=== PATIENT | male | born 1950 | race Caucasian/White ===

== ENCOUNTER 2018-12-03 11:25 | Inpatient (IN) | payer SELFPAY ==
[~2018-12-03] VITALS: Ht 180.3 cm; Wt 89.1 kg
[2018-12-03 11:54] VITALS: Ht 180.3 cm; Wt 89.1 kg
[2018-12-03 12:40] LABS: BASOPHIL % 1.5 % (0-2); PLATELET COUNT 209 x10^3mcL (130-400); RED CELL DISTRIBUTION WIDTH 14.4 % (11.5-14.5)
[2018-12-03 12:50] LABS: CALCIUM 9.3 mg/dL (8.5-10.1); CARBON DIOXIDE 30.6 mmol/L (21-32); CHLORIDE SERUM 104 mmol/L (98-107); CREATININE SERUM 0.9 mg/dL (0.7-1.3); GFR1 > 60 mL/min; GLUCOSE SERUM 123 mg/dL (74-106); POTASSIUM SERUM 4.8 mmol/L (3.5-5.1); SODIUM SERUM 140 mmol/L (136-145)
[2018-12-03 12:57] LABS: ALBUMIN 3.4 g/dL (3.4-5.0); ALKALINE PHOSPHATASE 66 U/L (46-116); ALT/SGPT 38 U/L (16-63); AST/SGOT 26 U/L (15-37); BILIRUBIN TOTAL 0.81 mg/dL (0.20-1.00); TOTAL PROTEIN, SERUM 7.2 g/dL (6.4-8.2)
[2018-12-03 13:00] LABS: CHOLESTEROL 231 mg/dL (<200); HDL CHOLESTEROL 63 mg/dL (40-60)
[2018-12-03] MEDS ORDERED: GLIPIZIDE5 M3 PO (13:43)
[2018-12-03] MEDS ORDERED: METFORMIN HCL1000 MG PO (13:43)
[2018-12-03 14:55] LABS: MAGNESIUM 2.2 mg/dL (1.8-2.4)
[2018-12-03 14:58] LABS: T3 TOTAL 1.09 ng/mL
[2018-12-03 14:59] LABS: CHOLESTEROL/HDL RATIO 3.7
[2018-12-03 15:39] LABS: microscopic required? YES; urine erythrocyte 1+ (NEGATIVE)
[2018-12-03 15:46] LABS: FREE T4 1.08 ng/dL (0.76-1.46); FREE THYROXINE INDEX 3.4 ug/dL (1.4-4.5)
[2018-12-03 17:37] VITALS: BP 194/82
[2018-12-03 17:42] LABS: AMPHETAMINE QUAL UR NONE DETECTED (See below)
[2018-12-03 19:00] VITALS: BP 155/69
[2018-12-03 21:00] VITALS: BP 158/70
[2018-12-03 22:51] VITALS: BP 145/52
[2018-12-04] VITALS (8 sets, daily range): BP systolic 158–212; BP diastolic 64–89
[2018-12-04 06:22] LABS: BASOPHIL % 0.4 % (0-2); PLATELET COUNT 206 x10^3mcL (130-400); RED CELL DISTRIBUTION WIDTH 14.3 % (11.5-14.5)
[2018-12-04 06:33] LABS: CALCIUM 8.8 mg/dL (8.5-10.1); CARBON DIOXIDE 24.6 mmol/L (21-32); CHLORIDE SERUM 106 mmol/L (98-107); CREATININE SERUM 0.9 mg/dL (0.7-1.3); GFR1 > 60 mL/min; GLUCOSE SERUM 126 mg/dL (74-106); POTASSIUM SERUM 4.1 mmol/L (3.5-5.1); SODIUM SERUM 140 mmol/L (136-145)
[2018-12-05 05:38] VITALS: BP 163/73
[2018-12-05 06:21] LABS: CALCIUM 9.1 mg/dL (8.5-10.1); CARBON DIOXIDE 26.2 mmol/L (21-32); CHLORIDE SERUM 109 mmol/L (98-107); GFR1 > 60 mL/min; GLUCOSE SERUM 162 mg/dL (74-106); POTASSIUM SERUM 4.8 mmol/L (3.5-5.1); SODIUM SERUM 142 mmol/L (136-145)
[2018-12-05 06:43] LABS: BASOPHIL % 0.3 % (0-2); PLATELET COUNT 219 x10^3mcL (130-400); RED CELL DISTRIBUTION WIDTH 14.6 % (11.5-14.5)
[2018-12-05 09:30] VITALS: BP 182/86
[2018-12-05] MEDS ORDERED: NOR10 PO (12:51)
[2018-12-05] MEDS ORDERED: PRINIVIL20 MG PO (12:52)
[2018-12-05] MEDS ORDERED: HYDRALAZINE HY100 MG PO (12:54)
[2018-12-05] MEDS ORDERED: ULTRAM50 MG PO (12:54)
[2018-12-05] MEDS ORDERED: ATENOLOL50 MG PO (13:27)
[2018-12-05 13:29] VITALS: BP 182/86
[2018-12-05 17:27] VITALS: BP 180/85
[2018-12-05 20:38] VITALS: BP 160/82
[2018-12-06 05:23] VITALS: BP 126/72
[2018-12-06 06:22] LABS: CALCIUM 8.7 mg/dL (8.5-10.1); CARBON DIOXIDE 25.6 mmol/L (21-32); CHLORIDE SERUM 108 mmol/L (98-107); CREATININE SERUM 1.1 mg/dL (0.7-1.3); GFR1 > 60 mL/min; GLUCOSE SERUM 153 mg/dL (74-106); POTASSIUM SERUM 4.5 mmol/L (3.5-5.1); SODIUM SERUM 141 mmol/L (136-145)
[2018-12-06 06:25] LABS: BASOPHIL % 0.5 % (0-2); PLATELET COUNT 206 x10^3mcL (130-400); RED CELL DISTRIBUTION WIDTH 14.2 % (11.5-14.5)
[2018-12-06 09:01] VITALS: BP 146/69
[2018-12-06] MEDS ORDERED: ISOSORBIDE MONO30 MG PO (09:44)
[2018-12-06 10:35] VITALS: BP 181/78
[2018-12-06 11:50] VITALS: BP 177/85
[2018-12-06 13:18] VITALS: BP 148/78
[2018-12-06 13:36] VITALS: BP 148/78
== END 2018-12-06 13:54 | disposition home or self-care (01) | DRG 280 ==
LOC: ED 11:25 → DU 13:36
PROVIDERS: Emergency Medicine; Internal Medicine; ADMIT General Practice
DX: I21.A1 Myocardial infarction type 2 (principal); N17.0 Acute kidney failure with tubular necrosis; E44.1 Mild protein-calorie malnutrition; I16.0 Hypertensive urgency; E11.65 Type 2 diabetes mellitus with hyperglycemia; E78.5 Hyperlipidemia, unspecified; I10 Essential (primary) hypertension; Z90.49 Acquired absence of other specified parts of digestive tract; Z68.27 Body mass index [BMI] 27.0-27.9, adult
CPT/HCPCS: 82962; 83880; 84439; 90658; J0360; J7030; Q0092

== ENCOUNTER 2019-05-23 19:47 | Inpatient (IN) | payer MEDICAID ==
[~2019-05-23] VITALS: Ht 180.3 cm; Wt 92.0 kg
[~2019-05-23 19:47] MED LIST: ATENOLOL50 MG PO; GLIPIZIDE5 M3 PO; HYDRALAZINE HY100 MG PO; ISOSORBIDE MONO30 MG PO; METFORMIN HCL1000 MG PO; NOR10 PO; PRINIVIL20 MG PO; ULTRAM50 MG PO
[2019-05-23 20:10] VITALS: Ht 180.3 cm; Wt 92.0 kg
[2019-05-23 21:28] LABS: BASOPHIL % 0.2 % (0-2); PLATELET COUNT 239 x10^3mcL (130-400); RED CELL DISTRIBUTION WIDTH 13.6 % (11.5-14.5)
[2019-05-23 21:35] LABS: CALCIUM 8.2 mg/dL (8.5-10.1); CARBON DIOXIDE 25.2 mmol/L (21-32); CREATININE SERUM 1.4 mg/dL (0.7-1.3)
[2019-05-23 21:40] LABS: BILIRUBIN TOTAL 0.5 mg/dL (0.20-1.00); TOTAL PROTEIN, SERUM 6.9 g/dL (6.4-8.2)
[2019-05-23 21:41] LABS: ALBUMIN 3.3 g/dL (3.4-5.0)
[2019-05-23] MEDS ORDERED: SIMVASTATIN20 M1 PO (23:43)
[2019-05-24 00:10] LABS: CHOLESTEROL/HDL RATIO 3.3; MAGNESIUM 1.9 mg/dL (1.8-2.4); PHOSPHOROUS 3.4 mg/dL (2.5-4.9)
[2019-05-24 01:06] VITALS: BP 150/69
[2019-05-24 06:44] VITALS: BP 119/62
[2019-05-24 07:13] LABS: BASOPHIL % 0.1 % (0-2); PLATELET COUNT 205 x10^3mcL (130-400); RED CELL DISTRIBUTION WIDTH 13.6 % (11.5-14.5)
[2019-05-24 07:15] LABS: CALCIUM 7.9 mg/dL (8.5-10.1); CARBON DIOXIDE 26.5 mmol/L (21-32); CREATININE SERUM 1.4 mg/dL (0.7-1.3); PHOSPHOROUS 3.5 mg/dL (2.5-4.9); POTASSIUM SERUM 4.3 mmol/L (3.5-5.1)
[2019-05-24 08:20] VITALS: BP 120/60
[2019-05-24 16:31] VITALS: BP 128/64
[2019-05-24 20:07] VITALS: BP 143/66
[2019-05-24 22:14] LABS: UA SPECIFIC GRAVITY 1.015 (1.005-1.035); microscopic required? YES; urine erythrocyte NEGATIVE (NEGATIVE)
[2019-05-24 22:41] LABS: AMPHETAMINE QUAL UR NONE DETECTED (See below)
[2019-05-25 05:58] VITALS: BP 141/58
[2019-05-25 06:32] LABS: BASOPHIL % 0.2 % (0-2); PLATELET COUNT 236 x10^3mcL (130-400); RED CELL DISTRIBUTION WIDTH 13.8 % (11.5-14.5)
[2019-05-25 06:48] LABS: CALCIUM 7.8 mg/dL (8.5-10.1); CARBON DIOXIDE 23.1 mmol/L (21-32); CHLORIDE SERUM 100 mmol/L (98-107); CREATININE SERUM 1.2 mg/dL (0.7-1.3); GFR1 > 60 mL/min; GLUCOSE SERUM 174 mg/dL (74-106); MAGNESIUM 1.9 mg/dL (1.8-2.4); POTASSIUM SERUM 4.2 mmol/L (3.5-5.1); SODIUM SERUM 136 mmol/L (136-145)
[2019-05-25 08:33] VITALS: BP 134/62
[2019-05-25 16:51] VITALS: BP 134/62
[2019-05-25 19:52] VITALS: BP 148/69
[2019-05-26 05:53] VITALS: BP 170/76
[2019-05-26 06:47] LABS: BASOPHIL % 0.3 % (0-2); PLATELET COUNT 255 x10^3mcL (130-400); RED CELL DISTRIBUTION WIDTH 13.6 % (11.5-14.5)
[2019-05-26 06:56] VITALS: BP 145/68
[2019-05-26 07:02] LABS: CALCIUM 7.9 mg/dL (8.5-10.1); CARBON DIOXIDE 23.3 mmol/L (21-32); CHLORIDE SERUM 103 mmol/L (98-107); CREATININE SERUM 1.2 mg/dL (0.7-1.3); GFR1 > 60 mL/min; GLUCOSE SERUM 149 mg/dL (74-106); POTASSIUM SERUM 4.4 mmol/L (3.5-5.1); SODIUM SERUM 137 mmol/L (136-145)
[2019-05-26 08:13] VITALS: BP 141/63
[2019-05-26 11:53] VITALS: BP 110/65
[2019-05-26 20:07] VITALS: BP 126/64
[2019-05-27 06:49] VITALS: BP 128/67
[2019-05-27 07:00] LABS: PLATELET COUNT 288 x10^3mcL (130-400); RED CELL DISTRIBUTION WIDTH 13.6 % (11.5-14.5)
[2019-05-27 07:09] LABS: BASOPHIL % 0 % (0-2)
[2019-05-27 08:31] VITALS: BP 142/69
[2019-05-27 08:37] LABS: CALCIUM 7.9 mg/dL (8.5-10.1); CHLORIDE SERUM 102 mmol/L (98-107); CREATININE SERUM 1.2 mg/dL (0.7-1.3); GFR1 > 60 mL/min; GLUCOSE SERUM 200 mg/dL (74-106); POTASSIUM SERUM 4.4 mmol/L (3.5-5.1); SODIUM SERUM 136 mmol/L (136-145)
[2019-05-27 12:59] VITALS: BP 126/77; BP 161/77
[2019-05-27 16:55] VITALS: BP 152/70
[2019-05-27 20:53] VITALS: BP 151/67
[2019-05-28 05:12] VITALS: BP 159/77
[2019-05-28 06:41] LABS: BASOPHIL % 0.4 % (0-2); PLATELET COUNT 358 x10^3mcL (130-400); RED CELL DISTRIBUTION WIDTH 13.3 % (11.5-14.5)
[2019-05-28 07:00] LABS: CHLORIDE SERUM 103 mmol/L (98-107); CREATININE SERUM 1.2 mg/dL (0.7-1.3); GFR1 > 60 mL/min; GLUCOSE SERUM 159 mg/dL (74-106); PHOSPHOROUS 2.9 mg/dL (2.5-4.9); POTASSIUM SERUM 4.4 mmol/L (3.5-5.1); SODIUM SERUM 136 mmol/L (136-145)
[2019-05-28 09:32] VITALS: BP 165/81
[2019-05-28 12:35] VITALS: BP 116/61
[2019-05-28 17:38] VITALS: BP 156/83
[2019-05-28 21:08] VITALS: BP 141/60
[2019-05-29 05:42] VITALS: BP 138/70
[2019-05-29 07:29] LABS: BASOPHIL % 0.1 % (0-2); RED CELL DISTRIBUTION WIDTH 13.8 % (11.5-14.5)
[2019-05-29 07:52] LABS: CALCIUM 7.9 mg/dL (8.5-10.1); CARBON DIOXIDE 23.9 mmol/L (21-32); CHLORIDE SERUM 104 mmol/L (98-107); CREATININE SERUM 1.1 mg/dL (0.7-1.3); GFR1 > 60 mL/min; GLUCOSE SERUM 171 mg/dL (74-106); POTASSIUM SERUM 4.6 mmol/L (3.5-5.1); SODIUM SERUM 137 mmol/L (136-145)
[2019-05-29 08:00] VITALS: BP 165/78
[2019-05-29 08:17] LABS: PLATELET COUNT 412 x10^3mcL (130-400)
[2019-05-29 11:41] VITALS: BP 145/76
[2019-05-29 16:24] VITALS: BP 148/73
[2019-05-29 19:14] VITALS: BP 128/60
[2019-05-30 05:26] VITALS: BP 164/76
[2019-05-30 06:46] LABS: BASOPHIL % 0.6 % (0-2); RED CELL DISTRIBUTION WIDTH 13.9 % (11.5-14.5)
[2019-05-30 06:57] LABS: CALCIUM 8.1 mg/dL (8.5-10.1); CARBON DIOXIDE 25.7 mmol/L (21-32); CHLORIDE SERUM 104 mmol/L (98-107); CREATININE SERUM 1.1 mg/dL (0.7-1.3); GFR1 > 60 mL/min; GLUCOSE SERUM 169 mg/dL (74-106); POTASSIUM SERUM 4.7 mmol/L (3.5-5.1); SODIUM SERUM 139 mmol/L (136-145)
[2019-05-30 07:04] LABS: PLATELET COUNT 446 x10^3mcL (130-400)
[2019-05-30 08:43] VITALS: BP 160/76
[2019-05-30] MEDS ORDERED: APAP/HYDROCODON1 T13 PO (11:23)
[2019-05-30] MEDS ORDERED: CLINDAMYCIN HC300 MG PO (11:25)
[2019-05-30 13:43] VITALS: BP 136/62
== END 2019-05-30 16:06 | disposition home health service (06) | DRG 710 ==
LOC: ED 19:47 → MU 22:54 → DU 05-27 22:50 → MU 05-28 15:50
PROVIDERS: Emergency Medicine; Internal Medicine; Podiatrist Foot & Ankle Surgery; ADMIT General Practice
PROC: 0Y9N0ZZ Drainage of Left Foot, Open Approach (ICD-10-PCS; 2019-05-26)
PROC: 0Y6N0ZF Detachment at Left Foot, Partial 5th Ray, Open Approach (ICD-10-PCS; principal; 2019-05-26 16:00)
PROC: 0Y6N0ZD Detachment at Left Foot, Partial 4th Ray, Open Approach (ICD-10-PCS; 2019-05-28)
DX: A41.9 Sepsis, unspecified organism (principal); N17.0 Acute kidney failure with tubular necrosis; E11.42 Type 2 diabetes mellitus with diabetic polyneuropathy; E11.51 Type 2 diabetes mellitus with diabetic peripheral angiopathy without gangrene; D68.69 Other thrombophilia; E11.65 Type 2 diabetes mellitus with hyperglycemia; E44.1 Mild protein-calorie malnutrition; E87.1 Hypo-osmolality and hyponatremia; L03.116 Cellulitis of left lower limb; L02.612 Cutaneous abscess of left foot; B95.1 Streptococcus, group B, as the cause of diseases classified elsewhere; E86.0 Dehydration; E83.51 Hypocalcemia; B35.3 Tinea pedis; L85.9 Epidermal thickening, unspecified; E78.5 Hyperlipidemia, unspecified; I10 Essential (primary) hypertension; D64.9 Anemia, unspecified; Z68.26 Body mass index [BMI] 26.0-26.9, adult; Z79.84 Long term (current) use of oral hypoglycemic drugs
CPT/HCPCS: 82962; 97110-GP; 97530-GP; G0378; J2001; J2270; J2405; J2543; J2704; J3010; J3370; J3490; J7030; J7050; Q0092

== ENCOUNTER 2019-06-04 22:55 | Inpatient (IN) | payer MEDICAID ==
[~2019-06-04] VITALS: Ht 180.3 cm; Wt 88.0 kg
[~2019-06-04 22:55] MED LIST changes: +APAP/HYDROCODON1 T13 PO; +CLINDAMYCIN HC300 MG PO; +SIMVASTATIN20 M1 PO
[2019-06-04 23:04] VITALS: Ht 180.3 cm; Wt 88.0 kg
--- NOTE | 2019-06-05 01:09 | NUR ---
PT AAOX4, NO S/S OF DISTRESS NOTED, RESPIRATIONS EVEN AND UNLABORED. PT C/O OF L FOOT PAIN RATED 10/10. PT REPORTS HAVING L 4TH DIGIT AMPULATION ON MONDAY AND 5TH DIGIT AMPUTATION ON MONDAY. PT PRESENTS TO ED WITH DRESSING TO L FOOT AND WOULD VAC. DRESSING IS DRY AND INTACT. PT REPORTS ATTEMPT TO BE SEEN BY PRIMARY DR BUT WAS UNABLE TO BEEN SEEN UNTIL MONDAY. PT REPORTS BEING SEEN ON MONDAY BY WOUND NURSE IN HOME. PER PT , NURSE STATED THAT WOUND WAS NOT HEALING PROPERLY AND PT SHOULD BE SEEN BY PRIMARY OR COME TO ED.
--- NOTE | 2019-06-05 02:10 | NUR ---
PT LAYING IN BED, PT REPORTS PAIN IS A 10/10. PT GIVEN TORADOL IM PER ORDER. PT ASSISTED TO POSITION TO COMFORT AND L FOOT ELEVATED. PT AT BEDSIDE.
[2019-06-05 02:53] LABS: BASOPHIL % 0.6 % (0-2); RED CELL DISTRIBUTION WIDTH 13.1 % (11.5-14.5)
[2019-06-05 02:54] LABS: PLATELET COUNT 482 x10^3mcL (130-400)
[2019-06-05 02:56] LABS: CALCIUM 8.8 mg/dL (8.5-10.1); CARBON DIOXIDE 25.7 mmol/L (21-32); CHLORIDE SERUM 102 mmol/L (98-107); CREATININE SERUM 1.2 mg/dL (0.7-1.3); GFR1 > 60 mL/min; GLUCOSE SERUM 153 mg/dL (74-106); POTASSIUM SERUM 4.4 mmol/L (3.5-5.1); SODIUM SERUM 137 mmol/L (136-145)
[2019-06-05 03:01] LABS: ALBUMIN 2.9 g/dL (3.4-5.0); ALKALINE PHOSPHATASE 123 U/L (46-116); ALT/SGPT 35 U/L (16-63); AST/SGOT 17 U/L (15-37); BILIRUBIN TOTAL 0.22 mg/dL (0.20-1.00); TOTAL PROTEIN, SERUM 7.1 g/dL (6.4-8.2)
--- NOTE | 2019-06-05 03:05 | NUR ---
PT SLEEPING IN BED, AROUSABLE TO VERBAL STIMULI. PT REPORTS PAIN HAS DECREASED TO 7/10. EMT SUBHASH REMOVING DRESSING. PT REPORTS PAIN INCREASES WITH TOUCH TO A 10/10. PT DESCRIBES THE PAIN STATING "IT FEELS LIKE ITS ON FIRE LIKE A BURN THE NERVES HURT."
--- NOTE | 2019-06-05 03:51 | NUR ---
PT SITTING UP IN BED NO S/S OF DISTRESS NOTED. PT REPORTS PAIN HAS DECREASED TO A 2/10 AND IS TOLERABLE. PT TALKING TO AT BEDSIDE.
[2019-06-05] MEDS ORDERED: HYDRALAZINE HCL50 MG PO (04:05)
--- NOTE | 2019-06-05 04:58 | NUR ---
PT LAYING IN BED TO POSITION OF COMFORT, TALKING TO AT BEDSIDE. NO S/S OF DISTRESS NOTED.
--- NOTE | 2019-06-05 06:50 | NUR ---
PT LAYING IN BED TO POSITION OF COMFORT. PT REPORTS PAIN IS A 4/10 AND IS TOLERABLE. PT REQUESTED FOR LIGHTS TO BE TURNED OFF. PT MADE AWARE OF ED HOLD UPON AVAILABILITY OF MED/SURG BED. PT IN NO ACUTE DISTRESS.
[2019-06-05 06:54] LABS: CHOLESTEROL/HDL RATIO 4.3
--- NOTE | 2019-06-05 07:21 | NUR ---
ATTEMPTED TO CALL REPORT TWICE, NO ANSWER. CALLED NURSING STATION, WAS TOLD NURSE WOULD CALL BACK FOR REPORT.
--- NOTE | 2019-06-05 07:47 | NUR ---
REPORT CALLED TO ARAM TORRES ON TELE UNIT TO ASSUME CARE OF PT.
--- NOTE | 2019-06-05 08:00 | NUR ---
RECEIVED PATIENT FROM ER AT THIS TIME VIA [facility] AT THIS TIME. PATIENT ABLE TO TRANSDER FROM [place] TO BED. NO APPARENT DISTRESS OR DISCOMFORT NOTED. PATIENT A/O X4 AND ABLE TO MAKE NEEDS KNOWN. ABLE TO FOLLOW COMMANDS. BREATHING EVEN AND UNLABORED. PATIENT DENIES SHORTNESS OF BREATH AT THIS TIME. PATIENT DENIES CHEST PAIN/PRESSURE AT THIS TIME. PATIENT IS A MEDSURG PATIENT. UPPER EXTREMITY PULSES PALPABLE. WEAK PEDAL PULSES NOTED. +1 EDEMA NOTED TO BLE (FEET). PATIENT S/P 4TH/5TH LEFT TOE AMPUTATION. WOUND VAC IN PLACE TO LEFT FOOT. LEFT EXTREMITY ELEVATED. BOWEL SOUNDS ACTIVE X4. PATIENT DENIES ABD PAIN, NAUSEA, AND VOMITING. PATIENT C/O MILD DISCOMFORT WHILE URINATING. GENERALIZED WEAKNESS. PATIENT STATES PAIN 3/10, BUT TOLERABLE. IV PATENT AND INTACT. ALL QUESTIONS AND CONCERNS ADDRESSED. ALL NEEDS ATTENDED TO. WILL CONTINUE TO MONITOR
[2019-06-05 09:15] VITALS: BP 157/64
--- NOTE | 2019-06-05 10:00 | NUR ---
PATIENT RECEIVED MORNING MEDICATIONS. PATIENT TOLERATED MEDICATIONS WELL. NO APPARENT ADVERSE EFFECTS NOTED. ALL NEEDS ATTENDED TO. WILL CONTINUE TO MONITOR
[2019-06-05 11:17] LABS: microscopic required? YES; urine erythrocyte NEGATIVE (NEGATIVE)
--- NOTE | 2019-06-05 12:00 | NUR ---
PATIENT BLOOD SUGAR 174. 3 UNITS OF REGULAR INSULIN REQUIRED (SEE EMAR). ALL NEEDS ATTENDED TO. WILL CONTINUE TO MONITOR
[2019-06-05 16:13] VITALS: BP 134/68
--- NOTE | 2019-06-05 19:37 | NUR ---
PATIENT RESTING COMFORTABLY IN BED AT THIS TIME. NO APPARENT DISTRESS OR DISCOMFORT NOTED. WOUND VAC NOTED TO LEFT FOOT. LEFT LOWER EXTREMITY ELEVATED ON PILLOW. IV PATENT AND INTACT. ALL QUESTIONS AND CONCERNS ADDRESSED. ALL NEEDS ATTENDED TO. SAFETY PRECAUTIONS MAINTAINED. ENDORSED ALL CARE TO MOLD SHEET CLEANER NURSE
--- NOTE | 2019-06-05 19:40 | NUR ---
RECEIVED PT IN BED RESTING QUIETLY. HE IS ALERT,ORIENTED X4. NO SOB ON ROOM AIR. W/ LT 4TH AND 5TH TOES AMPUTATION. W/ DRESSING TO LT FOOT INTACT. W/ WOUND VAC TO LT FOOT IN PLACE. NO DRAINAGE NOTED AT THIS TIME. W/ +1 SWELLING TO BLE. PT STATED HE IS COMFORTABLE AND DENIED HAVING PAIN AT THIS TIME. W/ IV TO RTAC. CALL LIGHT W/IN [place].
[2019-06-05 20:16] VITALS: BP 124/64
--- NOTE | 2019-06-06 01:15 | NUR ---
PT CALM AND APPEARS TO BE SLEEPING COMFORTABLY.
--- NOTE | 2019-06-06 05:04 | NUR ---
PT HAD A RESTFUL NIGHT. HE HAD NO C/O PAIN . WOUND VAC TO LT FOOT REMAINS INTACT. PT VERBALIZED THAT THE MEDICINE ( NEURONTIN) IS HELPING A LOT WITH HIS PAIN. HL TO RTAC INTACT AND PATENT.
[2019-06-06 06:07] VITALS: BP 173/83
--- NOTE | 2019-06-06 06:07 | NUR ---
PT C/O BACK PAIN 05/11 BUT PT SAID HIS FEET FEEL OKAY. PT MEDICATED W/ MORPHINE SULFATE 1 MG IV FOR BACK PAIN.
[2019-06-06 06:25] LABS: BASOPHIL % 0.6 % (0-2); RED CELL DISTRIBUTION WIDTH 14.1 % (11.5-14.5)
[2019-06-06 06:29] LABS: CALCIUM 8.7 mg/dL (8.5-10.1); CARBON DIOXIDE 22.2 mmol/L (21-32); CHLORIDE SERUM 103 mmol/L (98-107); CREATININE SERUM 0.9 mg/dL (0.7-1.3); GFR1 > 60 mL/min; GLUCOSE SERUM 182 mg/dL (74-106); MAGNESIUM 1.9 mg/dL (1.8-2.4); PHOSPHOROUS 3.4 mg/dL (2.5-4.9); POTASSIUM SERUM 4.4 mmol/L (3.5-5.1); SODIUM SERUM 137 mmol/L (136-145)
[2019-06-06 06:32] LABS: PLATELET COUNT 438 x10^3mcL (130-400)
--- NOTE | 2019-06-06 06:40 | NUR ---
BP=72/49 HR=[address] DESIR TO CHECK ON PT.
--- NOTE | 2019-06-06 06:45 | NUR ---
DR. DESIR IN TO SEE PT. O2 RDK=348% AT THIS TIME. [id number]. DR. DESIR TO ORDER ABG.
[2019-06-06 06:48] VITALS: BP 143/72
--- NOTE | 2019-06-06 08:00 | NUR ---
SHIFT ASSESSMENT DONE. PATIENT A/A/OX4; NO RESP DISTRESS ON RA. DENIED CHEST PAIN. BREAKFAST 100% FINISHED. TOLERATED WELL. VOID VIA URINAL. LT 4TH AND 5TH TOES AMPUTATED. WOUND VAC TO LT FOOT. NO DRAINAGE SEEN YET. DRSG CHANGED BY ASSOCIATE SALES REPRESENTATIVE AT 7AM. DENIED PAIN NOW. [facility]D TO [facility] CALL [facility] IN [place].
--- NOTE | 2019-06-06 08:03 | NUR ---
REPORT GIVEN TO AM NURSE.
[2019-06-06 08:13] VITALS: BP 156/71
[2019-06-06 14:34] VITALS: BP 157/78
--- NOTE | 2019-06-06 14:51 | NUR ---
NO DRAINAGE SEEN FROM WOUND VAC. JAYASHREE WOUND CARE NURSE CAME TO CHECK VAC MACHINE.
--- NOTE | 2019-06-06 16:30 | NUR ---
D/C TO HOME PER ORDER. INSTRUCTION GIVEN. IV D/C'D. OVER NEELD CATH INTACT. DENIED PAIN NOW. WOUND VAC TO LT FOOT INTACT. DUE TO PATIENT'S WOUND CARE PROVIDED BY TECHNICAL SALES REPRESENTATIVE. NURSE WAS UNABLE TO TAKE PHOTO AT TIME OF DISCHARGE. CONDITION STABLE. ACCOMPANIED WITH AND SON.
== END 2019-06-06 16:49 | disposition home or self-care (01) | DRG 383 ==
LOC: ED 22:55 → MU 06-05 04:06
PROVIDERS: Emergency Medicine; ADMIT Internal Medicine
DX: L03.116 Cellulitis of left lower limb (principal); E44.0 Moderate protein-calorie malnutrition; E11.40 Type 2 diabetes mellitus with diabetic neuropathy, unspecified; E11.51 Type 2 diabetes mellitus with diabetic peripheral angiopathy without gangrene; E11.65 Type 2 diabetes mellitus with hyperglycemia; I87.2 Venous insufficiency (chronic) (peripheral); I10 Essential (primary) hypertension; E78.5 Hyperlipidemia, unspecified; Z89.422 Acquired absence of other left toe(s); Z79.84 Long term (current) use of oral hypoglycemic drugs
CPT/HCPCS: 82962; G0378; J1815; J1885; J2270; J3370; J7060; Q0092

== ENCOUNTER 2019-10-23 11:00 | Emergency (ER) | payer MEDICAID ==
[~2019-10-23] VITALS: Ht 182.9 cm; Wt 88.5 kg
[~2019-10-23 11:00] MED LIST changes: +HYDRALAZINE HCL50 MG PO
[2019-10-23 11:17] VITALS: Ht 182.9 cm; Wt 88.5 kg
[2019-10-23 12:24] LABS: BASOPHIL % 0.4 % (0-2); PLATELET COUNT 299 x10^3mcL (130-400)
[2019-10-23 12:48] LABS: POTASSIUM SERUM 4.5 mmol/L (3.5-5.1)
[2019-10-23 12:49] LABS: ALBUMIN 3.8 g/dL (3.4-5.0); BILIRUBIN TOTAL 0.57 mg/dL (0.20-1.00); CALCIUM 9.7 mg/dL (8.5-10.1); CREATININE SERUM 1.5 mg/dL (0.7-1.3); TOTAL PROTEIN, SERUM 7.7 g/dL (6.4-8.2)
[2019-10-23 14:26] VITALS: BP 132/64
== END 2019-10-23 14:26 | disposition home or self-care (01) ==
LOC: ED 11:00
PROVIDERS: Emergency Medicine
DX: E11.621 Type 2 diabetes mellitus with foot ulcer (principal); I10 Essential (primary) hypertension; E11.9 Type 2 diabetes mellitus without complications; Z98.890 Other specified postprocedural states
CPT/HCPCS: 36415; J7030